=== PATIENT | male | born 1970 | race Caucasian/White ===

== ENCOUNTER 2019-08-30 17:42 | Emergency (ER) | payer OTHER ==
[~2019-08-30] VITALS: Ht 188 cm; Wt 81.5 kg
[~2019-08-30 17:42] MED LIST: ACYC-114 PO; CYCL50CA3 PO; DEXA4TAB66 PO; POMA4CAP PO; [UNRECOGNIZED DRUG - CODE] IV
--- NOTE | 2019-08-30 18:21 | NUR ---
FIRST CONTACT WITH PT. PT STATED "I NEED SOME PLTS" PLT LEVEL TODAY 6. SENT BY DR CARVAJAL. HX: MULTIPLE MYELOMA. PT USED CHEMO 2 WEEKS AGO AND STOPPED USING CHEMO D/T SIDE EFFECTS. PT C/O GENERALIZED WEAKNESS. PT'S AOX4. RESPS EVEN AND UNLABORED. BP/SPO2 MONITORS IN PLACE. CALL LIGHT WITHIN REACH.
[2019-08-30 18:32] LABS: INTERNATIONAL NORMALIZED RATIO 1.21 (0.93-1.1); MEAN CORPUSCULAR HEMOGLOBIN 30.6 pg (27.5-34.5); MEAN CORPUSCULAR HGB CONC 33.4 g/dL (33.2-36.2); MEAN CORPUSCULAR VOLUME 91.7 fL (81-97); MEAN PLATELET VOLUME 8.8 fL (7.4-10.4); PROTHROMBIN TIME 12.8 Seconds (9.6-11.5); RED BLOOD COUNT 2.55 x10^6/uL (4.38-5.82); RED CELL DISTRIBUTION WIDTH 13.6 % (9.4-14.8)
[2019-08-30 18:34] LABS: ALANINE AMINOTRANSFERASE 143 U/L (12-78); ALBUMIN 2.5 g/dL (3.4-5.0); ANION GAP 10 mmol/L (5-15); CALCIUM 9.1 mg/dL (8.5-10.1); CHLORIDE 108 mmol/L (98-107); CREATININE 0.71 mg/dL (0.7-1.3)
[2019-08-30 18:35] LABS: MD YES; PLATELET COUNT 8 x10^3/uL (130-400)
--- NOTE | 2019-08-30 18:35 | NUR ---
CRITICAL LAB:WBC 0.7 PLT 8.0
[2019-08-30 18:36] LABS: ALKALINE PHOSPHATASE 308 U/L (45-117); BILIRUBIN,TOTAL 1.3 mg/dL (0.2-1.0); TOTAL PROTEIN 7.5 g/dL (6.4-8.2)
--- NOTE | 2019-08-30 18:41 | NUR ---
REVERSE ISO CART PLACED AT THIS TIME D/T LOW PLT AND LOW WBC.
--- NOTE | 2019-08-30 19:01 | NUR ---
LAB CALLED AND STATED"IT TAKES ONE HOUR TO GET READY FOR PLT AT THIS TIME." EDMD NOTIFIED.
--- NOTE | 2019-08-30 19:06 | NUR ---
PT AND EDMD SIGNED ON BLOOD TRANSFUSION CONSENT FORM AT THIS TIME.
--- NOTE | 2019-08-30 19:14 | NUR ---
PILLOW GIVEN PER REQUEST AT THIS TIME.
[2019-08-30 19:20] LABS: BAND#(MANUAL) 0.06 x10^3/uL; BANDS%(MANUAL) 8 % (0-7); LYMPH#(MANUAL) 0.06 x10^3/uL (1-3.4); LYMPHS% (MANUAL) 9 % (22-44); MONOS#(MANUAL) 0.02 x10^3/uL (0.3-2.7); MONOS% (MANUAL) 3 % (2-9); OVALOCYTES 1+; SEG#(MANUAL) 0.56 x10^3/uL (1.8-6.8); SEGS% (MANUAL) 80 % (42-75)
[2019-08-30 19:21] LABS: <PLATELET ESTIMATE> DECREASED
[2019-08-30 19:24] LABS: <PLT MORPHOLOGY> NORMAL PLT MORPH
[2019-08-30 20:10] VITALS: BP 103/69
--- NOTE | 2019-08-30 20:11 | NUR ---
THIS RN WALKED TO LAB TO GET PLATLET. PLATLET TRANSFUSION STARTED AT THIS TIME. CHANDRIKA RN AT BEDSIDE. PT TOLERATED WELL.
[2019-08-30 20:24] VITALS: BP 111/65
[2019-08-30 20:48] VITALS: BP 107/67
--- NOTE | 2019-08-30 21:05 | NUR ---
pt still transfusing platlet at this time. pt's aox4. resps even and unlabored. pt denies pain, sob. piv site cdi with no redness and edema.
--- NOTE | 2019-08-30 21:13 | NUR ---
pt's bp is 98/58 at this time. pt stated"i feel fine." edmd notified.
[2019-08-30 21:18] VITALS: BP 102/63
[2019-08-30 21:45] VITALS: BP 100/61
--- NOTE | 2019-08-30 21:55 | NUR ---
report given to ramiro chen.
--- NOTE | 2019-08-30 22:32 | NUR ---
Pt resting on gurney. plt's almost complete. VSS. Call light within reach.
[2019-08-30 22:50] VITALS: BP 111/66
--- NOTE | 2019-08-30 23:00 | NUR ---
Pt alert and resting on gurney. NAD. Pt reports he feels better after transfusion. VSS. Pt d/c'd to self care. Pt educated on home care, and follow-up. Pt VU. Pt ambulated out of ER.
== END 2019-08-30 23:02 | disposition home or self-care (01) ==
LOC: ED 18:14
DX: D69.6 Thrombocytopenia, unspecified (principal); D63.0 Anemia in neoplastic disease; R06.09 Other forms of dyspnea
CPT/HCPCS: 36415; 36430; 80053; 85025; 85610; 85730; 86850; 86870; 86900; 99285; P9037; 86923